=== PATIENT | male | born 2000 | race African-American/Black ===

== ENCOUNTER 2022-10-07 19:18 | Emergency (ER) | payer OTHER ==
[~2022-10-07] VITALS: Ht 188 cm; Wt 77.6 kg
[2022-10-07] MEDS ORDERED: NORCO, ANEXSIA 5/325MG TABLET (HYDROcodone/ACETAMINOPHEN) PO ONE (20:15)
[2022-10-07 20:46] VITALS: BP 140/93
== END 2022-10-07 20:55 | disposition home or self-care (01) ==
LOC: M ED 19:18
DX: S63.280A Dislocation of proximal interphalangeal joint of right index finger, initial encounter (principal); W23.0XXA Caught, crushed, jammed, or pinched between moving objects, initial encounter; Y99.0 Civilian activity done for income or pay

== ENCOUNTER 2022-11-24 14:28 | Emergency (ER) | payer OTHER ==
[~2022-11-24] VITALS: Ht 188 cm; Wt 73.8 kg
[2022-11-24 14:29] VITALS: BP 158/84
== END 2022-11-24 15:53 | disposition home or self-care (01) ==
LOC: M ED 14:28
DX: M79.644 Pain in right finger(s) (principal); F10.10 Alcohol abuse, uncomplicated

== ENCOUNTER 2023-03-13 14:05 | Emergency (ER) | payer OTHER ==
[~2023-03-13] VITALS: Ht 188 cm; Wt 78.4 kg
[2023-03-13 14:06] VITALS: BP 130/60; TEMP 98.7; O2SAT 97
== END 2023-03-13 18:14 | disposition left against medical advice (07) ==
LOC: M ED 14:05
DX: Z53.21 Procedure and treatment not carried out due to patient leaving prior to being seen by health care provider (principal)

== ENCOUNTER 2023-08-18 12:34 | Emergency (ER) | payer OTHER, SELFPAY ==
[2023-08-18 13:16] LABS: HEMATOCRIT 42.5 % (42.0-52.0); HEMOGLOBIN 14.5 g/dl (13.5-17.5); MEAN CORPUSCULAR HEMOGLOBIN 30.5 pg (27.0-33.0); MEAN CORPUSCULAR HGB CONC 34.1 g/dl (32.0-36.5); MEAN CORPUSCULAR VOLUME 89.5 fl (80.0-96.0); PLATELET COUNT, AUTOMATED 364 10^3/uL (150-450); RED BLOOD COUNT 4.75 10^6/uL (4.30-6.10); WHITE BLOOD COUNT 4.9 10^3/uL (4.0-10.0)
[2023-08-18 13:43] LABS: AMPHETAMINES LEVEL URINE NEGATIVE (NEGATIVE)
[2023-08-18 13:44] LABS: BARBITURATES URINE NEGATIVE (NEGATIVE); BENZODIAZEPINES URINE NEGATIVE (NEGATIVE); CANNABINOIDS URINE NEGATIVE (NEGATIVE); COCAINE METABOLITE URINE NEGATIVE (NEGATIVE); METHADONE URINE NEGATIVE (NEGATIVE); OPIATES URINE NEGATIVE (NEGATIVE); PHENCYCLIDINE URINE NEGATIVE (NEGATIVE)
[2023-08-18 13:46] LABS: ETHYL ALCOHOL (ETHANOL) < 0.003 % (0.000-0.010)
[2023-08-18 13:48] LABS: ALBUMIN 3.5 G/DL (3.2-5.2); ALKALINE PHOSPHATASE 69 U/L (46-116); ALT/SGPT 21 U/L (7.0-40); AST/SGOT 17 U/L (<34); BILIRUBIN,DIRECT 0.2 MG/DL (<0.4); BILIRUBIN,TOTAL 0.4 MG/DL (0.3-1.2); BLOOD UREA NITROGEN 12 MG/DL (9-23); CARBON DIOXIDE LEVEL 27 MMOL/L (20-31); CHLORIDE LEVEL 110 MMOL/L (98-107); CREATININE FOR GFR 1.03 MG/DL (0.70-1.30); GLOMERULAR FILTRATION RATE > 60.0 (>60); GLUCOSE, FASTING 87 MG/DL (60-100); POTASSIUM SERUM 4.3 MMOL/L (3.5-5.1); SALICYLATE LEVEL < 3.0 MG/DL (<30); SODIUM LEVEL 139 MMOL/L (136-145); TOTAL PROTEIN 7.5 G/DL (5.7-8.2)
[2023-08-18 13:49] LABS: THYROID STIMULATING HORMONE 0.974 uIU/ML (0.55-4.78)
[2023-08-18] MEDS ORDERED: VITA500T10 PO (15:06)
[2023-08-18] MEDS ORDERED: MULT-40 PO (15:06)
[2023-08-18 16:01] VITALS: BP 125/72; TEMP 97.8; O2SAT 99
== END 2023-08-18 16:10 | disposition home or self-care (01) ==
LOC: M ED 12:34 → EDBD 12:34 → M ED 16:10
DX: F43.0 Acute stress reaction (principal); Z79.899 Other long term (current) drug therapy